=== PATIENT | female | born 1980 | race Hispanic/Latino ===

== ENCOUNTER 2018-12-10 23:11 | Emergency (ER) | payer BC ==
[~2018-12-10] VITALS: Ht 154.9 cm; Wt 63.5 kg
--- OUTSIDE RECORDS SUMMARY | 2018-12-10 23:18 | XMS REPORT ---
Author Author [facility] Address Unknown Phone Unavailable Care Team Providers Care Tableau Lead Name Role Phone UNKNOWN, REFFERING PP Unavailable KARUNA YOUNGBLOOD Unavailable Unavailable TOMAS MAGALLON Unavailable Unavailable Problems This patient has no known problems. Allergies, Adverse Reactions, Alerts This patient has no known allergies or adverse reactions. Medications This patient has no known medications. Encounters Start Date/Time End Date/Time Encounter Type Admission Type Attending Clinicians Care Facility Care Department Encounter ID 2017-05-26 10:14:00 2017-05-26 10:14:00 Emergency [facility] MED [id number] 2017-02-04 19:23:00 2017-02-04 19:23:00 Emergency E [facility] MED [id number] Results Test Description Test Time Test Comments Text Results Atomic Results Result Comments BASIC METABOLIC PANEL 2017-06-27 14:22:00 SODIUM (BEAKER) (test fyuf=916) 137 meq/L 136-145 POTASSIUM (BEAKER) (test eyfd=692) 3.8 meq/L 3.5-5.1 CHLORIDE (BEAKER) (test wkvm=441) 105 meq/L 98-107 CO2 (BEAKER) (test kizo=342) 22 meq/L 22-29 BLOOD UREA NITROGEN (BEAKER) (test ezfj=667) 11 mg/dL 7-21 CREATININE (BEAKER) (test rqph=656) 0.68 mg/dL 0.57-1.25 GLUCOSE RANDOM (BEAKER) (test ycee=680) 79 mg/dL 70-105 CALCIUM (BEAKER) (test thng=279) 8.7 mg/dL 8.4-10.2 EGFR (BEAKER) (test hazv=5448) 98 mL/min/1.73 sq m ESTIMATED GFR IS NOT ACCURATE CREATININE CLEARANCE IN PREDICTING GLOMERULAR FILTRATION RATE. ESTIMATED GFR IS NOT APPLICABLE FOR DIALYSIS PATIENTS. CBC W/PLT COUNT & AUTO [id number] 14:04:00* Test Item Value Reference Range Comments WHITE BLOOD CELL COUNT (BEAKER) (test puyp=008) 4.2 K/ L 3.5-10.5 RED BLOOD CELL COUNT (BEAKER) (test wrjr=914) 4.17 M/ L 3.93-5.22 HEMOGLOBIN (BEAKER) (test apcw=900) 8.6 GM/DL 11.2-15.7 HEMATOCRIT (BEAKER) (test hhii=429) 30.0 % 34.1-44.9 MEAN CORPUSCULAR VOLUME (BEAKER) (test tpme=970) 71.9 fL 79.4-94.8 MEAN CORPUSCULAR HEMOGLOBIN (BEAKER) (test otfs=648) 20.6 pg 25.6-32.2 MEAN CORPUSCULAR HEMOGLOBIN CONC (BEAKER) (test bstq=666) 28.7 GM/DL 32.2-35.5 RED CELL DISTRIBUTION WIDTH (BEAKER) (test apqz=941) 17.0 % 11.7-14.4 PLATELET COUNT (BEAKER) (test ugtq=629) 349 K/CU MM 150-450 MEAN PLATELET VOLUME (BEAKER) (test cqnd=555) 10.6 fL 9.4-12.3 NUCLEATED RED BLOOD CELLS (BEAKER) (test kbxs=420) 0 /100 WBC 0-0 NEUTROPHILS RELATIVE PERCENT (BEAKER) (test qbnn=542) 44 % LYMPHOCYTES RELATIVE PERCENT (BEAKER) (test wklw=947) 41 % MONOCYTES RELATIVE PERCENT (BEAKER) (test afto=754) 9 % EOSINOPHILS RELATIVE PERCENT (BEAKER) (test hdbv=423) 5 % BASOPHILS RELATIVE PERCENT (BEAKER) (test ssnl=778) 1 % NEUTROPHILS ABSOLUTE COUNT (BEAKER) (test cnbl=993) 1.83 K/ L 1.56-6.13 LYMPHOCYTES ABSOLUTE COUNT (BEAKER) (test qmin=325) 1.73 K/ L 1.18-3.74 MONOCYTES ABSOLUTE COUNT (BEAKER) (test qxag=433) 0.39 K/ L 0.24-0.36 EOSINOPHILS ABSOLUTE COUNT (BEAKER) (test tuxv=196) 0.20 K/ L 0.04-0.36 BASOPHILS ABSOLUTE COUNT (BEAKER) (test lrxv=854) 0.03 K/ L 0.01-0.08 IMMATURE GRANULOCYTES-RELATIVE PERCENT (BEAKER) (test ngus=2844) 0 % 0-1 URINALYSIS W/ [id number] 10:51:00* Test Item Value Reference Range Comments COLOR (BEAKER) (test hpyx=518) Colorless CLARITY (BEAKER) (test eaja=304) Clear SPECIFIC GRAVITY UA (BEAKER) (test wjky=171) 1.001 1.001-1.035 PH UA (BEAKER) (test jtly=916) 6.5 5.0-8.0 PROTEIN UA (BEAKER) (test saue=805) Negative Negative GLUCOSE UA (BEAKER) (test xtop=086) Negative Negative KETONES UA (BEAKER) (test ggml=936) Negative Negative BILIRUBIN UA (BEAKER) (test kzpy=206) Negative Negative BLOOD UA (BEAKER) (test nxkw=374) Negative Negative NITRITE UA (BEAKER) (test dkrc=906) Negative Negative LEUKOCYTE ESTERASE UA (BEAKER) (test lazr=801) Negative Negative UROBILINOGEN UA (BEAKER) (test qckv=992) 0.2 mg/dL 0.2-1.0 RBC UA (BEAKER) (test jnno=793) 0 /HPF WBC UA (BEAKER) (test tcpt=822) < /HPF SOURCE(BEAKER) (test xjrj=2820) Urine, Clean Catch SCREEN, [id number] 10:50:00* Test Item Value Reference Range Comments TEST URINE (BEAKER) (test fxwf=930) Negative URINALYSIS W/ [id number] 10:51:00* Test Item Value Reference Range Comments COLOR (BEAKER) (test bslk=068) Colorless CLARITY (BEAKER) (test eaks=243) Clear SPECIFIC GRAVITY UA (BEAKER) (test dilw=298) 1.001 1.001-1.035 PH UA (BEAKER) (test zoxz=635) 5.5 5.0-8.0 PROTEIN UA (BEAKER) (test pflq=131) Negative Negative GLUCOSE UA (BEAKER) (test njur=946) Negative Negative KETONES UA (BEAKER) (test aaki=546) Negative Negative BILIRUBIN UA (BEAKER) (test mcal=667) Negative Negative BLOOD UA (BEAKER) (test nyfe=908) Trace Negative NITRITE UA (BEAKER) (test bzeq=777) Negative Negative LEUKOCYTE ESTERASE UA (BEAKER) (test gkhm=141) Negative Negative UROBILINOGEN UA (BEAKER) (test krup=487) 0.2 mg/dL 0.2-1.0 RBC UA (BEAKER) (test oflc=912) 0 /HPF WBC UA (BEAKER) (test uldg=670) 0 /HPF SQUAMOUS EPITHELIAL (BEAKER) (test clov=218) < /HPF SOURCE(BEAKER) (test dozx=7155) SCREEN, [id number] 10:38:00* Test Item Value Reference Range Comments TEST URINE (BEAKER) (test vjxs=974) Negative
--- OUTSIDE RECORDS SUMMARY | 2018-12-10 23:18 | XMS REPORT | Clinical Summary ---
Author Author [facility] Address Unknown Phone Unavailable Care Team Providers Care Patented Hogshead Assembler Name Role Phone Donovan Abhinav Jazminjacquie Torres PCP Allergies Comments Active Allergy Reactions Severity Noted Date Ibuprofen 01/19/2018 Medications End Date Status Medication Sig Dispensed Refills Start Date Active clonazePAM (KLONOPIN) 1 Take 1 mg by 0 MG tablet mouth 2 (two) times daily as needed for Anxiety. 12/13/2018 Active traMADol (ULTRAM) 50 mg Take 1 tablet 10 tablet 0 tablet (50 mg total) 9 by mouth 2 (two) times daily for 5 days. Max Daily Amount: 100 mg 01/19/2018 Discontinued ibuprofen (ADVIL,MOTRIN) Take 1 tablet 20 tablet 0 600 MG tablet (600 mg 5 total) by mouth every 6 (six) hours as needed for Pain for up to 20 doses. 01/19/2018 Discontinued acetaminophen (TYLENOL) Take 500 mg 0 500 MG tablet by mouth every 6 (six) hours as needed for Pain. 01/19/2018 Discontinued sertraline (ZOLOFT) 50 MG Take 50 mg by 0 tablet mouth daily. 01/19/2018 Discontinued zolpidem (AMBIEN) 5 MG Take 5 mg by 0 tablet mouth every night as needed for Insomnia. 01/19/2018 Discontinued traMADol (ULTRAM) 50 mg Take 1 tablet 4 tablet 0 tablet (50 mg total) 7 by mouth every 6 (six) hours as needed for Pain for up to 4 doses. Max Daily Amount: 200 mg 01/26/2018 penicillin v potassium Take 1 tablet 28 tablet 0 (VEETID) 500 MG tablet (500 mg 8 total) by mouth 4 (four) times daily for 7 days. 01/29/2018 traMADol (ULTRAM) 50 mg Take 1 tablet 20 tablet 0 tablet (50 mg total) 8 by mouth every 6 (six) hours as needed for up to 10 days. Max Daily Amount: 200 mg 12/08/2018 Discontinued traMADol (ULTRAM-ER) 100 Take 100 mg 0 MG 24 hr tablet by mouth 2 (two) times daily. Active Problems Problem Noted Date Acute bilateral low back pain with right-sided sciatica 12/08/2018 Lumbar strain, initial encounter 12/08/2018 Encounters Care Team Description Date Type Specialty Nettie, Darlyn Mckeon DO Acute bilateral low back pain with right-sided sciatica (Primary Dx); Lumbar strain, initial encounter 12/08/2018 Emergency Emergency Medicine 12/08/2018 Travel Clayton Oneal MD Pain, dental (Primary Dx) 01/19/2018 Emergency Emergency Medicine after 12/09/2017 Family History Medical History Relation Name Comments Hypertension Father Hypertension Mother Relation Name Status Comments Father Alive Mother Alive Social History Date Tobacco Use Types Packs/Day Years Used Current Every Day Smoker Cigarettes Smokeless Tobacco: Never Used Alcohol Use Drinks/Week oz/Week Comments Yes socially Sex Assigned at Date Recorded Not on file Industry Job Start Date Occupation Not on file Not on file Not on file Travel End Travel History Travel Start No recent travel history available. Last Filed Vital Signs Time Taken Vital Sign Reading 12/08/2018 1:40 PM CDT Blood Pressure 132/84 12/08/2018 1:40 PM CDT Pulse 91 12/08/2018 11:59 AM CDT Temperature 36.4 C (97.6 F) 12/08/2018 1:40 PM CDT Respiratory Rate 18 12/08/2018 1:40 PM CDT Oxygen Saturation 100% - Inhaled Oxygen - Concentration 12/08/2018 11:59 AM CDT Weight 74.8 kg (165 lb) 12/08/2018 11:59 AM CDT Height 154.9 cm (5' 1") 12/08/2018 11:59 AM CDT Body Mass Index 31.18 Plan of Treatment Not on file Results Not on fileafter 12/09/2017 Insurance Payer Benefit Subscriber ID Type Phone Address Plan / Group [employer] PPO xxxxxxxxxxxx PPO [phone] [address] [place] [address] CHOICE
[2018-12-11] MEDS ORDERED: FERROUS SULFAT325 MG PO
[2018-12-11] MEDS ORDERED: POTASSIUM CHLORIDE 20 MEQ TAB CR PO STA (00:03)
[2018-12-11] MEDS ORDERED: POTASSIUM CHLORIDE 20 MEQ TAB CR PO ONE (00:07)
== END 2018-12-11 00:21 | disposition home or self-care (01) ==
LOC: FSED 23:11
DX: D50.9 Iron deficiency anemia, unspecified (principal); E87.6 Hypokalemia; K52.9 Noninfective gastroenteritis and colitis, unspecified
CPT/HCPCS: 80053; 81003; 85025; 99283

== ENCOUNTER 2019-02-02 17:44 | Emergency (ER) | payer BC ==
[~2019-02-02] VITALS: Ht 154.9 cm; Wt 72.6 kg
[~2019-02-02 17:44] MED LIST: FERROUS SULFAT325 MG PO
--- OUTSIDE RECORDS SUMMARY | 2019-02-02 17:47 | XMS REPORT | Clinical Summary ---
Author Author [facility] Address Unknown Phone Unavailable Care Team Providers Care Assistant Operator Name Role Phone Gregory Linton Melissa PCP Allergies Comments Active Allergy Reactions Severity Noted Date Ibuprofen 01/19/2018 Medications End Date Status Medication Sig Dispensed Refills Start Date Active clonazePAM (KLONOPIN) 1 Take 1 mg by 0 MG tablet mouth 2 (two) times daily as needed for Anxiety. 12/08/2018 Discontinued traMADol (ULTRAM-ER) 100 Take 100 mg 0 MG 24 hr tablet by mouth 2 (two) times daily. 12/13/2018 traMADol (ULTRAM) 50 mg Take 1 tablet 10 tablet 0 tablet (50 mg total) 9 by mouth 2 (two) times daily for 5 days. Max Daily Amount: 100 mg Active Problems Problem Noted Date Acute bilateral low back pain with right-sided sciatica 12/08/2018 Lumbar strain, initial encounter 12/08/2018 Encounters Care Team Description Date Type Specialty Nettie, Darlyn Mckeon DO Acute bilateral low back pain with right-sided sciatica (Primary Dx); Lumbar strain, initial encounter 12/08/2018 Emergency Emergency Medicine 12/08/2018 Travel after 02/01/2018 Family History Medical History Relation Name Comments [...] Not on file Results Not on fileafter 02/01/2018 Insurance Payer Benefit Subscriber ID Type Phone Address Plan / Group [employer] PPO xxxxxxxxxxxx PPO [phone] [address] [place] [address] CHOICE
== END 2019-02-02 18:32 | disposition home or self-care (01) ==
LOC: FSED 17:44
DX: M54.5 Low back pain (principal); M47.816 Spondylosis without myelopathy or radiculopathy, lumbar region; G89.29 Other chronic pain
CPT/HCPCS: 81003; 81025; 99283